=== PATIENT | female | born 2000 | race Caucasian/White ===

== ENCOUNTER 2023-02-16 17:18 | Emergency (ER) | payer MEDICAID ==
[~2023-02-16] VITALS: Ht 162.6 cm; Wt 72.6 kg
[2023-02-16 17:31] VITALS: BP_SYST 111
--- NOTE | 2023-02-16 17:42 | NUR ---
Pt brought by self, A&Ox,4 pt presents to ER with pain around umbilical area since yesterday, pt denies N/V/D/C , pt sent from urgent care for US, skin pink and warm, cap refill <3, VSS.
--- NOTE | 2023-02-16 18:30 | NUR ---
Dr Flores evaluating patient at bedside
--- NOTE | 2023-02-16 22:05 | NUR ---
Patient given written and verbal discharge instructions and verbalizes understanding. ER MD discussed with patient the results and treatment provided. Patient in stable condition. ID arm band removed. Rx of given. Patient educated on pain management and to follow up with PMD. Pain Scale . Opportunity for questions provided and answered. Medication side effect fact sheet provided.
== END 2023-02-16 22:06 | disposition home or self-care (01) ==
LOC: SED 17:18
DX: R10.33 Periumbilical pain (principal); Z79.899 Other long term (current) drug therapy
CPT/HCPCS: 76705; 81025; 99284